=== PATIENT | male | born 1965 | race Caucasian/White ===

== ENCOUNTER 2022-05-13 08:57 | Day surgery (SDC) | payer BC, SELFPAY ==
[2022-05-13 09:04] VITALS: BP 126/91; PULSE 71; RESP 20; TEMP 35.8; O2SAT 96; BMI 30.8
--- NOTE | 2022-05-13 09:10 | ED.GENADULT ---
HPI - General Adult General Time Seen by Provider: 09:10 Date Seen: 05/13/22 Chief complaint: Ear/Nose/Throat Problem Stated complaint: Piece of meat lodged in throat Time Seen by Provider: 05/13/22 08:59 Source: patient Mode of arrival: ambulatory Limitations: no limitations History of Present Illness HPI narrative: Patient is a 56-year-old white male who has been largely healthy, with no allergies to medicines, who was eating chicken last night at about 630 and felt it stick in his throat, he went to the [facility]. He took some pop rock type medication but was unable to relieve the obstruction, they told him he needs endoscopy and he went home. He presents today to the ED. He has been trying to drink soda pop but it has not moved anything. He feels like he has pain that is not significant but uncomfortable in his upper sternal area when he tries to swallow. He has to spit up spit, if he drinks water he has to spit that up as well. No breathing difficulty, no recent illness. Related Data Home Medications Medication Instructions Recorded Confirmed metoprolol tartrate 25 mg tablet 25 mg PO DAILY 05/13/22 05/13/22 Previous Rx's Medication Instructions Recorded omeprazole 20 mg capsule,delayed 20 mg PO QDAY GERD #30 caps 05/13/22 release Allergies Allergy/AdvReac Type Severity Reaction Status Date / Time No Known Drug Allergies Allergy Verified 05/13/22 09:12 Review of Systems Status of ROS: Reports: 6 or more systems reviewed and unremarkable except as noted in History and below PFS PFS Social History Smoking Status: Never smoker Do you use any of these nicotine containing products: None How often do you have a drink containing alcohol: 4 or more times a week How many standard drinks containing alcohol do you have on a typical day: 1 or 2 How often do you have six or more drinks on one occasion: Weekly AUDIT-C Alcohol total score: 7 Non-prescribed substance use: denies use Exam Narrative: Exam Narrative: Objective: Patient is alert or x3, talks in even unlabored sentences, has a spit up bag near him. Noncyanotic Vital signs are being recorded Lungs are clear Heart rhythm regular heart murmur Abdomen benign soft HEENT shows no swelling of the throat or foreign body. Neurologic nonfocal Peripheral perfusion is normal Const: Vital Signs, click to edit/add: Vital Signs - 24 hr 05/13/22 09:04 05/13/22 09:32 05/13/22 09:33 Temperature 96.4 F L Pulse Rate 72 80 Pulse Rate [Right Pulse Oximeter] 71 Respiratory Rate 20 Blood Pressure 134/91 H Blood Pressure [Le ft Upper Arm] 126/91 H Pulse Oximetry 96 97 95 Oxygen Delivery Me thod Room Air 05/13/22 10:00 Temperature Pulse Rate Pulse Rate [Right Pulse Oximeter] 62 Respiratory Rate 18 Blood Pressure Blood Pressure [Le ft Upper Arm] 120/83 Pulse Oximetry 98 Oxygen Delivery Me thod Course Vital Signs Vital signs: Initial Vital Signs Temperature 96.4 F L 05/13/22 09:04 Temperature Source Temporal Artery Scan 05/13/22 09:04 Pulse Rate 71 05/13/22 09:04 Pulse Rhythm 05/13/22 09:04 Respiratory Rate 20 05/13/22 09:04 Blood Pressure 126/91 H 05/13/22 09:04 Blood Pressure Mean 102 05/13/22 09:04 Blood Pressure Position Supine 05/13/22 09:04 Pulse Oximetry 96 05/13/22 09:04 Oxygen Delivery Method 05/13/22 09:04 Vital Signs Temperature 96.4 F L 05/13/22 09:04 Pulse Rate 71 05/13/22 09:04 Respiratory Rate 20 05/13/22 09:04 Blood Pressure 126/91 H 05/13/22 09:04 Pulse Oximetry 96 05/13/22 09:04 Oxygen Delivery Method 05/13/22 09:04 Temperature 96.4 F L 05/13/22 09:04 Pulse Rate 62 05/13/22 10:00 Respiratory Rate 18 05/13/22 10:00 Blood Pressure 120/83 05/13/22 10:00 Pulse Oximetry 98 05/13/22 10:00 Oxygen Delivery Method 05/13/22 09:04 Medical Decision Making MDM Narrative Medical decision making narrative: Patient likely has a food bolus in his esophagus. Will schedule EGD for the patient, given he has had conservative treatment thus far, and is another unable to swallow water or even his saliva at this time I think EGDs appropriate. Will start an IV, and notify endoscopy. Fortunately Dr. Right stir is in endoscopy today and conform procedure Lab Data Labs: Lab Results 05/13/22 Range/Units 09:15 SARS-CoV-2 (PCR) Negative SARS-CoV-2 (Negative) Discharge Plan Discharge Clinical Impression: Esophageal obstruction due to food impaction Patient Disposition: Admitted As Inpatient Condition: Stable Activity Level: No Restrictions Diet Detail: NPO Discharge Comment: Patient will be sent to endoscopy for EGD
[2022-05-13] MEDS: 0.9 % SODIUM CHLORIDE 500 ML 500 ML IV (09:31)
[2022-05-13 09:32] VITALS: PULSE 72; O2SAT 97
[2022-05-13 09:33] VITALS: BP 134/91; PULSE 80; O2SAT 95
[2022-05-13 10:00] VITALS: BP 120/83; PULSE 62; RESP 18; O2SAT 98
--- NOTE | 2022-05-13 10:23 | ED.NURSE ---
To to endo via w/c Will d/c from there per My, RN
[2022-05-13 10:31] LABS: SARS PCR* Negative SARS-CoV-2 (Negative)
== END 2022-05-13 13:00 | disposition home or self-care (01) ==
LOC: ED 09:37 → SS 10:22
PROVIDERS: Emergency Provider Family Medicine; Visit Provider Internal Medicine
DX: T18.128A Food in esophagus causing other injury, initial encounter (principal); K22.2 Esophageal obstruction
CPT/HCPCS: 43247; 87635; 99283; 99284; J2250; J3010; J7120